=== PATIENT | female | born 2000 | race Caucasian/White ===

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

== ENCOUNTER 2020-10-12 06:03 | Emergency (ER) | payer OTHER ==
[~2020-10-12] VITALS: Ht 154.9 cm; Wt 86.2 kg
[2020-10-12 06:08] VITALS: BP 110/68
[2020-10-12] MEDS ORDERED: NITR100C7 PO (06:35)
[2020-10-12] MEDS ORDERED: ONDA8TAB87 PO (06:35)
[2020-10-12 07:00] VITALS: BP 110/68
== END 2020-10-12 07:00 | disposition home or self-care (01) ==
LOC: MED 06:03
DX: O23.41 Unspecified infection of urinary tract in pregnancy, first trimester (principal); O21.9 Vomiting of pregnancy, unspecified; Z3A.09 9 weeks gestation of pregnancy
CPT/HCPCS: 81002; 81025; 99283

== ENCOUNTER 2021-01-15 08:53 | Emergency (ER) | payer OTHER ==
[~2021-01-15] VITALS: Ht 154.9 cm; Wt 94.3 kg
[~2021-01-15 08:53] MED LIST: NITR100C7 PO; ONDA8TAB87 PO
[2021-01-15 09:10] VITALS: BP 150/82
--- NOTE | 2021-01-15 09:10 | NUR ---
Pt ambulated to bed 8
--- NOTE | 2021-01-15 09:10 | NUR ---
20 y/o BIB self for c/o pelvic pain 12/03. Pain is sharp and non-radiating. Pt states she is 20 weeks . Pt denies N/V/D at this time. Pt denies any vaginal discharge at this time. Denies any trauma leading to pelvic pain. pmhx: Denies allergies: Denies
--- NOTE | 2021-01-15 09:15 | NUR ---
ERMD at bedside examining pt
[2021-01-15] MEDS ORDERED: ACETAMINOPHEN 325 MG TAB PO ONE (09:45)
--- NOTE | 2021-01-15 09:50 | NUR ---
Lab at bedside drawing blood
--- NOTE | 2021-01-15 09:57 | NUR ---
US at bedside completing procedure
--- NOTE | 2021-01-15 09:58 | NUR ---
Urine collected and given to lab
--- NOTE | 2021-01-15 09:59 | NUR ---
US AT BEDSIDE
[2021-01-15 10:04] LABS: BASOPHILS % (AUTO) 0.2 % (0.0-2.0); EOSINOPHILS # (AUTO) 0.2 K/uL (0-0.4); EOSINOPHILS % (AUTO) 2.1 % (0.0-4.0); HEMATOCRIT 38.6 % (36-48); HEMOGLOBIN 13.2 g/dL (12.0-16.0); LYMPHOCYTES # (AUTO) 1.7 K/uL (2.5-16.5); LYMPHOCYTES % (AUTO) 15.7 % (20.5-51.1); MEAN CORPUSCULAR HEMOGLOBIN 30 pg (27-31); MEAN CORPUSCULAR HGB CONC 34 g/dL (33-37); MEAN CORPUSCULAR VOLUME 87.4 fL (80-94); MONOCYTES # (AUTO) 0.5 K/uL (0.8-1.0); MONOCYTES % (AUTO) 4.3 % (1.7-9.3); NEUTROPHILS # (AUTO) 8.2 K/uL (1.8-7.7); NEUTROPHILS % (AUTO) 77.7 % (42.2-75.2); PLATELET COUNT (AUTO) 264 K/uL (140-450); RED BLOOD CELL COUNT(AUTO) 4.42 MIL/uL (4.20-5.40); RED CELL DISTRIBUTION WIDTH 12.9 % (11.6-13.7); WHITE BLOOD COUNT (AUTO) 10.6 K/uL (4.5-11.0)
[2021-01-15 10:10] VITALS: BP 140/78
[2021-01-15 10:14] LABS: ANION GAP 13.1 (8-16); CARBON DIOXIDE 23.8 mmol/L (21-32); CREATININE 0.6 mg/dL (0.6-1.3); POTASSIUM 3.9 mmol/L (3.5-5.1)
--- NOTE | 2021-01-15 10:55 | NUR ---
PATRICK COLLLECTED AND WALKED DOWN TO LAB BY LIAT
--- NOTE | 2021-01-15 11:06 | NUR ---
PER ERMD, PENDING UA COLLECTION. NOTIFIED THAT URINE IS IN THE LAB TO BE PROCESSED
[2021-01-15 11:17] LABS: APPEARANCE,URINE CLEAR (CLEAR); BILIRUBIN,URINE NEGATIVE (NEGATIVE); BLOOD, URINE NEGATIVE (NEGATIVE); COLOR,URINE YELLOW (YELLOW); LEUKOCYTE ESTERASE ,URINE NEGATIVE (NEGATIVE); NITRITE, URINE NEGATIVE (NEGATIVE); UGLUCOSE NEGATIVE (NEGATIVE)
--- NOTE | 2021-01-15 11:41 | NUR ---
DR PALUMBO AT BEDSIDE WITH PT
--- NOTE | 2021-01-15 11:49 | NUR ---
Patient discharged with v/s stable. Written and verbal after care instructions ABOUT ABDOMINAL PAIN DURING given and explained. Patient verbalized understanding. Ambulatory with steady gait. All questions addressed prior to discharge. Advised to follow up with PMD.
== END 2021-01-15 11:48 | disposition home or self-care (01) ==
LOC: MED 08:53
DX: O26.892 Other specified pregnancy related conditions, second trimester (principal); O00.01 Abdominal pregnancy with intrauterine pregnancy; Z3A.20 20 weeks gestation of pregnancy
CPT/HCPCS: 36415; 76805; 80048; 81003; 85025; 99284; Q0092

== ENCOUNTER 2023-07-02 18:38 | Emergency (ER) | payer OTHER ==
[~2023-07-02] VITALS: Ht 152.4 cm; Wt 88.9 kg
[2023-07-02 19:43] VITALS: BP 117/83; PULSE 97; RESP 18; TEMP 98.6; O2SAT 95
[2023-07-02 22:04] LABS: FLU A ANTIGEN negative (NEGATIVE); FLU B ANTIGEN NEGATIVE (NEGATIVE)
[2023-07-02] MEDS ORDERED: AMOX500C25 PO (22:08)
[2023-07-02] MEDS ORDERED: HYDR-5191 PO (22:08)
== END 2023-07-02 22:11 | disposition home or self-care (01) ==
LOC: MED 18:38
DX: J02.0 Streptococcal pharyngitis (principal); Z20.822 Contact with and (suspected) exposure to COVID-19; Z98.890 Other specified postprocedural states; Z79.899 Other long term (current) drug therapy
CPT/HCPCS: 87081; 99283